=== PATIENT | male | born 1945 | race Caucasian/White ===

== ENCOUNTER 2021-01-23 12:52 | Inpatient (IN) | payer OTHER, MEDICARE ==
[~2021-01-23] VITALS: Ht 182.9 cm; Wt 86.6 kg
[~2021-01-23 12:52] MED LIST: CLEOCIN HCL150 MG PO; MEDROL4 MG PO
[2021-01-23 13:45] LABS: HEMOGLOBIN 13.8 gm/dl (14.0-17.5); RED BLOOD COUNT 4.37 M/UL (4.20-5.50); WHITE BLOOD COUNT 10.7 K/UL (4.5-11.0)
[2021-01-23 14:04] LABS: BUN/CREATININE RATIO 11 (0-10)
--- NOTE | 2021-01-23 19:36 | NUR ---
THREE ATTEMPTS WERE MADE TO CONTACT [facility] AND PERSON TO NOTIFY IN AN ATTEMPT TO COMPLETE PATIENT ADMISSION TO HOSPITAL. ADI IYER CALLED AT 1932 AND 1933 WITH THE PHONE CALL BEING SENT TO [facility] EACH TIME. GENOVEVA RACHAEL ATTEMPTED TO BE CONTACTED AT 1933 WELL WITH A VERIZON WIRELESS DISCONNECT MESSAGE GIVEN.
[2021-01-24 06:39] LABS: RED BLOOD COUNT 3.95 M/UL (4.20-5.50); WHITE BLOOD COUNT 9.3 K/UL (4.5-11.0)
[2021-01-24 07:12] LABS: BUN/CREATININE RATIO 21 (0-10)
[2021-01-25 06:29] LABS: HEMOGLOBIN 12.8 gm/dl (14.0-17.5); RED BLOOD COUNT 4.12 M/UL (4.20-5.50); WHITE BLOOD COUNT 10.3 K/UL (4.5-11.0)
[2021-01-25 07:27] LABS: BUN/CREATININE RATIO 22 (0-10)
[2021-01-25] MEDS ORDERED: CRESTOR40 MG PO (17:42)
[2021-01-25] MEDS ORDERED: METOPROLOL TART25 MG PO (17:44)
[2021-01-25] MEDS ORDERED: ALFUZOSIN HCL E10 MG PO (17:45)
[2021-01-25] MEDS ORDERED: FERROUS SULFAT324 MG PO (17:46)
[2021-01-26 06:34] LABS: HEMOGLOBIN 12.8 gm/dl (14.0-17.5); RED BLOOD COUNT 4.08 M/UL (4.20-5.50)
[2021-01-26 06:57] LABS: BUN/CREATININE RATIO 25 (0-10)
[2021-01-27 06:24] LABS: HEMOGLOBIN 13.4 gm/dl (14.0-17.5); RED BLOOD COUNT 4.24 M/UL (4.20-5.50); WHITE BLOOD COUNT 9.3 K/UL (4.5-11.0)
[2021-01-27 06:34] LABS: BUN/CREATININE RATIO 28 (0-10)
--- NOTE | 2021-01-27 11:00 | NUR ---
Orders to gve dose of Seraquel now, as pat. did not take last p.m.
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
[2021-01-28 06:43] LABS: HEMOGLOBIN 12.6 gm/dl (14.0-17.5); RED BLOOD COUNT 4.17 M/UL (4.20-5.50)
[2021-01-28 06:47] LABS: WHITE BLOOD COUNT 5.8 K/UL (4.5-11.0)
[2021-01-28 07:09] LABS: BUN/CREATININE RATIO 34 (0-10)
[2021-01-28 09:13] LABS: HBSAG SCREEN Negative (Negative); HEP A AB, IGM Negative (Negative); HEP B CORE AB, IGM Negative (Negative); HEP C VIRUS AB <0.1 (0.0-0.9)
[2021-01-29 04:26] LABS: HEMOGLOBIN 12.2 gm/dl (14.0-17.5); RED BLOOD COUNT 3.86 M/UL (4.20-5.50); WHITE BLOOD COUNT 7.1 K/UL (4.5-11.0)
[2021-01-29 04:52] LABS: BUN/CREATININE RATIO 31 (0-10)
[2021-01-29 09:37] LABS: BUN/CREATININE RATIO 33 (0-10)
[2021-01-30 04:46] LABS: HEMOGLOBIN 12.6 gm/dl (14.0-17.5); RED BLOOD COUNT 4.08 M/UL (4.20-5.50); WHITE BLOOD COUNT 8.7 K/UL (4.5-11.0)
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
[2021-01-31 06:45] LABS: HEMOGLOBIN 12.6 gm/dl (14.0-17.5); RED BLOOD COUNT 4.07 M/UL (4.20-5.50); WHITE BLOOD COUNT 7.6 K/UL (4.5-11.0)
[2021-01-31 08:48] LABS: BUN/CREATININE RATIO 21 (0-10)
[2021-02-02 07:11] LABS: RED BLOOD COUNT 3.94 M/UL (4.20-5.50); WHITE BLOOD COUNT 8.3 K/UL (4.5-11.0)
[2021-02-02 07:43] LABS: BUN/CREATININE RATIO 19 (0-10)
--- NOTE | 2021-02-02 13:31 | NUR ---
PATIENT CONFUSED AND COMBATIVE DURING DRESSING CHANGE. CRAWLING HIMSELF ALL OVER THE BED. PATIENT WAS FINALLY CALMED AND DRESSING CHANGE DONE. MEDICATION FOR PAIN AND AGITATION ADMINISTERED, BRIEF CHANGED. PATIENT RESTING QUIETLY AT THIS TIME. WILL CONTINUE TO MONITOR.
[2021-02-03 05:54] LABS: HEMOGLOBIN 11.8 gm/dl (14.0-17.5); RED BLOOD COUNT 3.83 M/UL (4.20-5.50); WHITE BLOOD COUNT 6.4 K/UL (4.5-11.0)
[2021-02-03 06:33] LABS: BUN/CREATININE RATIO 17 (0-10)
--- NOTE | 2021-02-03 06:57 | NUR ---
PATIENT HAD CRITICAL LAB THIS AM. POTASSIUM WAS 3.0. THAT VALUE WAS CALLED IN TO THE [employer] HELPER. PATIENT HAS POTASSIUM PROTOCOL IN PLACE. PROVIDER ORDERED JUST TO REPLACE PATIENTS POTASSIUM PER PROTOCOL. WILL CONTINUE TO MONITOR.
--- NOTE | 2021-02-03 10:36 | NUR ---
PATIENT COMBATIVE WITH CARE. ALMOST KICKED TECH TRYING TO OBTAIN VITALS IN THE FACE. WOULD ALLOW BRIEF TO BE CHANGED. PATIENT BEGAN YELLING AT THE TOP OF HIS LUNGS AND SWINGING HIS ARMS AT BOTH NURSE AND TECH. PROVIDER WAS CALLED BUT NOT REACHED AT THIS TIME. PATIENT ALSO WAS UNABLE TO TAKE MORNING MEDS DUE TO CONFUSION AND COMBATIVE TENDENCIES. WILL CONTINUE TO MONITOR.
[2021-02-04 08:51] LABS: HEMOGLOBIN 12.1 gm/dl (14.0-17.5); RED BLOOD COUNT 3.99 M/UL (4.20-5.50); WHITE BLOOD COUNT 8.6 K/UL (4.5-11.0)
[2021-02-04 10:08] LABS: BUN/CREATININE RATIO 12 (0-10)
[2021-02-05 09:41] LABS: HEMOGLOBIN 12.9 gm/dl (14.0-17.5); RED BLOOD COUNT 4.17 M/UL (4.20-5.50)
[2021-02-05 09:48] LABS: WHITE BLOOD COUNT 10.8 K/UL (4.5-11.0)
[2021-02-05 09:55] LABS: BUN/CREATININE RATIO 13 (0-10)
[2021-02-06 11:55] LABS: HEMOGLOBIN 11.9 gm/dl (14.0-17.5); RED BLOOD COUNT 3.89 M/UL (4.20-5.50); WHITE BLOOD COUNT 9.3 K/UL (4.5-11.0)
[2021-02-06 12:14] LABS: BUN/CREATININE RATIO 15 (0-10)
[2021-02-07 07:17] LABS: HEMOGLOBIN 12.1 gm/dl (14.0-17.5); RED BLOOD COUNT 3.88 M/UL (4.20-5.50); WHITE BLOOD COUNT 8.8 K/UL (4.5-11.0)
[2021-02-08 10:49] LABS: HEMOGLOBIN 11.4 gm/dl (14.0-17.5); RED BLOOD COUNT 3.71 M/UL (4.20-5.50); WHITE BLOOD COUNT 6.7 K/UL (4.5-11.0)
[2021-02-09 07:31] LABS: HEMOGLOBIN 10.6 gm/dl (14.0-17.5); RED BLOOD COUNT 3.52 M/UL (4.20-5.50); WHITE BLOOD COUNT 5.7 K/UL (4.5-11.0)
--- NOTE | 2021-02-09 08:43 | NUR ---
CRITICAL POTASSIUM OF 2.[address] PATIENT[address] ARANGO WAS CALLED WITHIN 15 MINUTES. ORDERS RECEIVED TO GIVE 20MEQ OF POTASSIUM AND RECHECK AT NOON.
--- NOTE | 2021-02-10 10:56 | NUR ---
PATIENT CONTINUES TO PULL AND REMOVE CLOTHING AND WOUND CARE PERFORMED BY RN. SILVADENE CREAM APPLIED PER ORDER AND A THIN TOP SHEET APPLIED TOLERATED. RN AND STAFF ENCOURAGE PATIENT TO ROLL FROM SIDE TO SIDE LAYING SUPINE WILL CAUSE FURTHER SKIN IRRITATION R/T SHEERING. PATIENT REQUIRES FREQUENT REDIRECTION AND REORIENTATION HE IS ONLY ALERT TO SELF. RESTING IN BED WITH EYES CLOSED. FREQUENT OFFERS FOR FOOD AND HYDRATION OFFERED THIS AM PER STAFF, PATIENT CONTINUES TO REFUSE. BED LOCKED AND LOW. CALL LIGHT WITHIN REACH. NO S/SX OF PAIN OR DISTRESS AT PRESENT.
[2021-02-11 10:20] LABS: HEMOGLOBIN 11.7 gm/dl (14.0-17.5); RED BLOOD COUNT 3.8 M/UL (4.20-5.50); WHITE BLOOD COUNT 6.8 K/UL (4.5-11.0)
[2021-02-12 07:59] LABS: HEMOGLOBIN 11.1 gm/dl (14.0-17.5); RED BLOOD COUNT 3.7 M/UL (4.20-5.50); WHITE BLOOD COUNT 5.9 K/UL (4.5-11.0)
[2021-02-13 07:43] LABS: HEMOGLOBIN 11.4 gm/dl (14.0-17.5); RED BLOOD COUNT 3.8 M/UL (4.20-5.50); WHITE BLOOD COUNT 6.3 K/UL (4.5-11.0)
[2021-02-14 07:15] LABS: RED BLOOD COUNT 3.67 M/UL (4.20-5.50)
[2021-02-14 07:21] LABS: WHITE BLOOD COUNT 4.6 K/UL (4.5-11.0)
[2021-02-15 11:32] LABS: HEMOGLOBIN 12.3 gm/dl (14.0-17.5)
[2021-02-15 11:34] LABS: RED BLOOD COUNT 4.05 M/UL (4.20-5.50); WHITE BLOOD COUNT 6.7 K/UL (4.5-11.0)
[2021-02-16 08:52] LABS: HEMOGLOBIN 11.8 gm/dl (14.0-17.5); RED BLOOD COUNT 3.88 M/UL (4.20-5.50); WHITE BLOOD COUNT 5.7 K/UL (4.5-11.0)
[2021-02-16 09:09] LABS: BUN/CREATININE RATIO 12 (0-10)
[2021-02-17 09:31] LABS: HEMOGLOBIN 12.4 gm/dl (14.0-17.5); RED BLOOD COUNT 4.14 M/UL (4.20-5.50); WHITE BLOOD COUNT 5.6 K/UL (4.5-11.0)
[2021-02-17 09:53] LABS: BUN/CREATININE RATIO 11 (0-10)
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
[2021-02-18 09:27] LABS: HEMOGLOBIN 12.6 gm/dl (14.0-17.5); RED BLOOD COUNT 4.25 M/UL (4.20-5.50); WHITE BLOOD COUNT 7.8 K/UL (4.5-11.0)
[2021-02-18 09:52] LABS: BUN/CREATININE RATIO 14 (0-10)
--- NOTE | 2021-02-18 18:24 | NUR ---
ATTEMPTED TO STRAIGHT CATH PT. UNABLET TO ADVANCE [facility] CATH. PT SCHEDULED FOR DORSAL SPLIT IN AM TO PLACE [facility] CATH.
--- NOTE | 2021-02-19 14:40 | NUR ---
ASSESSED PT SURGICAL SITE ONCE RETURNING BACK TO HIS ROOM. PENIS WAS COVERED WITH SPLIT 4X4 WITH MODERATE BLOODY DRAINAGE. I PLACED AN ABD PAD UNDERNEATH TO KEEP PT CLEAN AND DRY. HIS BUTT HAS NEW ALLEVYN'S ON IT THAT WERE PLACED IN OR AFTER CLEANING/DEBRIDING PER OCCUPATIONAL THERAPIST PER DIEM. ALL BANDAGES ON THE BACK SIDE ARE CDI. WCTM. PT IS SLEEPING AT THIS TIME AND ALL VITALS ARE STABLE/
[2021-02-21 08:42] LABS: HEMOGLOBIN 12.2 gm/dl (14.0-17.5); RED BLOOD COUNT 3.9 M/UL (4.20-5.50); WHITE BLOOD COUNT 6.7 K/UL (4.5-11.0)
[2021-02-21 09:01] LABS: BUN/CREATININE RATIO 19 (0-10)
[2021-02-21] MEDS ORDERED: SANTYL OINT 3030 GM TOP (10:35)
[2021-02-21] MEDS ORDERED: CHRONULAC20 GM/30 M PO (10:35)
[2021-02-21] MEDS ORDERED: ASPIRIN EC81 MG PO (10:35)
[2021-02-21] MEDS ORDERED: CRESTOR 10 MG T10 MG PO (10:35)
[2021-02-21] MEDS ORDERED: LOPRESSOR 25 MG25 MG PO (10:35)
[2021-02-21] MEDS ORDERED: SILVADENE20 GM TOP (10:35)
== END 2021-02-21 13:30 | DRG 935 ==
LOC: ER1 12:52 → CDU 16:19 → MED SURG 4 16:19
PROVIDERS: Internal Medicine; Preventive Medicine Occupational Medicine; Surgery; ADMIT Internal Medicine
PROC: B24BZZ4 Ultrasonography of Heart with Aorta, Transesophageal (ICD-10-PCS; 2021-02-01)
PROC: 0HB8XZZ Excision of Buttock Skin, External Approach (ICD-10-PCS; principal; 2021-02-19 07:30)
DX: T21.25XA Burn of second degree of buttock, initial encounter (principal); K72.00 Acute and subacute hepatic failure without coma; Z20.822 Contact with and (suspected) exposure to COVID-19; J18.9 Pneumonia, unspecified organism; J96.01 Acute respiratory failure with hypoxia; G93.41 Metabolic encephalopathy; N17.9 Acute kidney failure, unspecified; M62.82 Rhabdomyolysis; E87.0 Hyperosmolality and hypernatremia; E72.20 Disorder of urea cycle metabolism, unspecified; N47.1 Phimosis; N48.1 Balanitis; F03.90 Unspecified dementia, unspecified severity, without behavioral disturbance, psychotic disturbance, mood disturbance, and anxiety; K76.9 Liver disease, unspecified; T59.811A Toxic effect of smoke, accidental (unintentional), initial encounter; R33.9 Retention of urine, unspecified; T24.131A Burn of first degree of right lower leg, initial encounter; I25.10 Atherosclerotic heart disease of native coronary artery without angina pectoris; E87.70 Fluid overload, unspecified; E87.6 Hypokalemia; I48.91 Unspecified atrial fibrillation; X01.1XXA Exposure to smoke in uncontrolled fire, not in building or structure, initial encounter; I10 Essential (primary) hypertension; N40.1 Benign prostatic hyperplasia with lower urinary tract symptoms; F43.10 Post-traumatic stress disorder, unspecified; Z88.5 Allergy status to narcotic agent; Z85.46 Personal history of malignant neoplasm of prostate; Z95.1 Presence of aortocoronary bypass graft; Z79.01 Long term (current) use of anticoagulants; Z79.899 Other long term (current) drug therapy; Z79.82 Long term (current) use of aspirin
CPT/HCPCS: ECHO; 36415; 36600; 70450; 70551; 71045; 80048; 80053; 80074; 80202; 80307; 82140; 82375; 82550; 82553; 82803; 83605; 83690; 83735; 83874; 83880; 84100; 84132; 84439; 84443; 84484; 85025; 85027; 85610; 85652; 85730; 86140; 87040; 87070; 87205; 92610; 93005; 93306; 96374; 96375; 97161; 99285; A6212; G0480; J0360; J0696; J1200; J1650; J1885; J1940; J2001; J2060; J2185; J2270; J2704; J3370; J3475; J3480; J3486; J7030; J7050; J7070; J7120; U0002